=== PATIENT | male | born 1935 | race Caucasian/White ===

== ENCOUNTER 2016-10-12 12:44 | Outpatient (CLI) | payer MEDICARE, OTHER ==
--- NOTE | 2016-10-13 12:44 | Ultrasound Report ---
BLADDER ULTRASOUND: 10/12/2016 CLINICAL HISTORY: Patient has BPH, obstructive, plus reflux uropathy. TECHNIQUE: Real-time scanning was performed with labor representative static images obtained. FINDINGS: Bladder configuration shows no masses. Both ureteral jets are visualized well. Prevoid bladder volume is 89.8 mL. Postvoid bladder volume is 24.9 mL. IMPRESSION: MILD INCREASED POSTVOID RESIDUAL IS NOTED WITHIN THE BLADDER OF 24.9 ML. JOB #: [id number] EXT JOB #:[id number]
== END 2016-10-12 12:45 | disposition home or self-care (01) ==
LOC: DI 12:44
PROVIDERS: ATTEND Internal Medicine
DX: N40.1 Benign prostatic hyperplasia with lower urinary tract symptoms (principal); N13.8 Other obstructive and reflux uropathy
CPT/HCPCS: 76857

== ENCOUNTER 2019-05-16 11:15 | Outpatient (CLI) | payer MEDICARE, OTHER | END 2019-05-16 11:16 | disposition critical access hospital (66) | LOC: EMS 11:15 | PROVIDERS: ATTEND Surgery | DX: R41.0 Disorientation, unspecified (principal); R42 Dizziness and giddiness | CPT/HCPCS: A0425; A0427 ==

== ENCOUNTER 2019-05-16 11:44 | Emergency (ER) | payer MEDICARE, OTHER ==
[2019-05-16 12:30] LABS: BASOPHILS % (AUTO) 0.4 %; EOSINOPHILS # (AUTO) 0.1 10^3/uL (0.0-0.7); EOSINOPHILS % (AUTO) 1.1 %; HGB - HEMOGLOBIN 12.9 g/dL (14.0-18.0); LYMPHOCYTES # (AUTO) 0.8 10^3/uL (1.5-3.5); LYMPHOCYTES % (AUTO) 9.3 %; MEAN CORPUSCULAR HEMOGLOBIN 30.6 pg (27.0-31.0); MEAN CORPUSCULAR HGB CONC 34.7 g/dL (32.0-36.0); MEAN CORPUSCULAR VOLUME 88.4 fL (80.0-94.0); MEAN PLATELET VOLUME 9.6 fL (7.4-11.4); MONOCYTES # (AUTO) 0.9 10^3/uL (0.0-1.0); MONOCYTES % (AUTO) 10.1 %; NEUTROPHILS # (AUTO) 6.6 10^3/uL (1.5-6.6); NEUTROPHILS % (AUTO) 78.6 %; PLT - PLATELET COUNT 259 10^3/uL (130-450); RED BLOOD COUNT 4.21 10^6/uL (4.70-6.10); RED CELL DISTRIBUTION WIDTH 12.1 % (12.0-15.0); WHITE BLOOD COUNT 8.4 x10^3/uL (4.8-10.8)
[2019-05-16 12:49] LABS: ALBUMIN 3.9 g/dL (3.2-5.5); ALBUMIN/GLOBULIN RATIO 1.3 (1.0-2.2); BILIRUBIN,TOTAL 0.9 mg/dL (0.2-1.0); CALCIUM 8.8 mg/dL (8.5-10.3)
[2019-05-16] MEDS ORDERED: SODIUM CHLORIDE 0.9% 1,000 ML IV ONE (12:50)
[2019-05-16 12:54] LABS: BILIRUBIN,URINE NEGATIVE (NEGATIVE); GLUCOSE, URINE (UA) NEGATIVE (NEGATIVE); KETONES,URINE (UA) NEGATIVE (NEGATIVE); LEUKOCYTE ESTERASE, URINE NEGATIVE (NEGATIVE); NITRITE,URINE NEGATIVE (NEGATIVE); OCCULT BLOOD,URINE NEGATIVE (NEGATIVE); PROTEIN,URINE NEGATIVE (NEGATIVE); UROBILINOGEN,URINE 0.2 (NORMAL) E.U./dL (NORMAL)
[2019-05-16 12:56] LABS: CLARITY,URINE CLEAR (CLEAR)
--- NOTE | 2019-05-16 12:59 | ED Physician Documentation ---
History of Present Illness - Stated complaint Stated Complaint: AMS - Chief complaint Chief Complaint: Neuro - History obtained from History obtained from: Patient, EMS - History of Present Illness Timing: Yesterday Pain level max: 0 Pain level now: 0 Improved by: nothing Worsened by: nothing - Additonal information Additional information: states accidentally took 30mg of his 's baclofen last night. He still relates that he felt lightheaded and dizzy after this. He states that he slept very well last night however. When he got up this morning he still felt lightheaded and slightly confused so called 911. No focal neurological deficits. No shortness of breath. No nausea or vomiting. No abdominal pain. No difficulty with ambulation. No chest pain. Review of Systems Ten Systems: 10 systems reviewed and negative Constitutional: denies: Fever, Chills Nose: denies: Rhinorrhea / runny nose, Congestion Cardiac: denies: Chest pain / pressure Respiratory: denies: Cough GI: denies: Abdominal Pain, Nausea, Vomiting, Diarrhea : denies: Dysuria Skin: denies: Rash Musculoskeletal: denies: Neck pain, Back pain Neurologic: reports: Confused (Patient states he felt confused this morning currently is feeling better). denies: Focal weakness, Numbness, Headache, Head injury, LOC PD PAST MEDICAL HISTORY - Past Medical History Past Medical History: Yes Cardiovascular: Hypertension, High cholesterol Neuro: CVA Endocrine/Autoimmune: HyPOthyroidism GI: GERD - Present Medications Home Medications: Ambulatory Orders Medication Instructions Recorded Confirmed Amlodipine Besylate [Norvasc] 10 mg PO DAILY 05/16/19 05/16/19 Atorvastatin Calcium 20 mg PO DAILY 05/16/19 05/16/19 Levothyroxine [Synthroid] 100 mcg PO QDAC 05/16/19 05/16/19 Omeprazole 0 mg PO DAILY 05/16/19 05/16/19 Tamsulosin HCl [Flomax] 0.4 mg PO DAILY 05/16/19 05/16/19 timoloL maleate [Timolol Maleate] 0 mg PO DAILY 05/16/19 05/16/19 - Allergies Allergies/Adverse Reactions: Allergies Allergy/AdvReac Type Severity Reaction Status Date / Time No Known Drug Allergies Allergy Verified 05/16/19 12:04 - Social History Does the pt smoke?: No Smoking Status: Never smoker Does the pt drink ETOH?: No Does the pt have substance abuse?: No - Immunizations Immunizations: TDAP >10years/unknown PD ED PE NORMAL - Vitals Vital signs reviewed: Yes - General General: Alert and oriented X 3, No acute distress, Well developed/nourished, Other (Slightly slow to respond to questions at times.) - HEENT HEENT: Atraumatic, PERRL, EOMI, Ears normal, Moist mucous membranes, Pharynx benign - Neck Neck: Supple, no meningeal sign - Cardiac Cardiac: RRR, Strong equal pulses - Respiratory Respiratory: No respiratory distress, Clear bilaterally - Abdomen Abdomen: Soft, Non tender, Non distended - Derm Derm: Warm and dry, No rash - Extremities Extremities: No edema - Neuro Neuro: Alert and oriented X 3, instant potato processor 2-12 intact, No motor deficit, No sensory deficit, Normal speech Eye Opening: Spontaneous Motor: Obeys Commands Verbal: Oriented GCS Score: 15 - Psych Psych: Normal mood, Normal affect Results - Vitals Vitals: Vital Signs - 24 hr 05/16/19 05/16/19 05/16/19 11:51 13:55 14:00 Temperature 36.9 C Heart Rate 57 L 75 68 Respiratory 17 19 14 Rate Blood Pressure 146/74 H 132/62 H 135/73 H O2 Saturation 99 100 97 Oxygen O2 Source Room air - Labs Labs: Laboratory Tests 05/16/19 05/16/19 05/16/19 12:26 12:26 12:26 WBC 8.4 RBC 4.21 L Hgb 12.9 L Hct 37.2 L MCV 88.4 MCH 30.6 MCHC 34.7 RDW 12.1 Plt Count 259 MPV 9.6 Neut # (Auto) 6.6 Lymph # (Auto) 0.8 L Beadle # (Auto) 0.9 Eos # (Auto) 0.1 Baso # (Auto) 0.0 Absolute Nucleated RBC 0.00 Nucleated RBC % 0.0 Sodium 130 L Potassium 3.8 Chloride 96 L Carbon Dioxide 25 Anion Gap 9.0 BUN 17 Creatinine 1.0 Estimated GFR (MDRD) 71 L Glucose 117 H Calcium 8.8 Total Bilirubin 0.9 AST 21 ALT 16 Alkaline Phosphatase 60 Troponin I High Sens 8.0 Total Protein 7.0 Albumin 3.9 Globulin 3.1 Albumin/Globulin Ratio 1.3 Lipase 24 Urine Color Urine Clarity Urine pH Ur Specific [place] Urine Protein Urine Glucose (UA) Urine Ketones Urine Occult Blood Urine Nitrite Urine Bilirubin Urine Urobilinogen Ur Leukocyte Esterase Ur Microscopic Review Urine Culture Comments 05/16/19 12:45 WBC RBC Hgb Hct MCV MCH MCHC RDW Plt Count MPV Neut # (Auto) Lymph # (Auto) Beadle # (Auto) Eos # (Auto) Baso # (Auto) Absolute Nucleated RBC Nucleated RBC % Sodium Potassium Chloride Carbon Dioxide Anion Gap BUN Creatinine Estimated GFR (MDRD) Glucose Calcium Total Bilirubin AST ALT Alkaline Phosphatase Troponin I High Sens Total Protein Albumin Globulin Albumin/Globulin Ratio Lipase Urine Color YELLOW Urine Clarity CLEAR Urine pH 7.0 Ur Specific [place] 1.010 Urine Protein NEGATIVE Urine Glucose (UA) NEGATIVE Urine Ketones NEGATIVE Urine Occult Blood NEGATIVE Urine Nitrite NEGATIVE Urine Bilirubin NEGATIVE Urine Urobilinogen 0.2 (NORMAL) Ur Leukocyte Esterase NEGATIVE Ur Microscopic Review NOT INDICATED Urine Culture Comments NOT INDICATED - Rads (name of study) Head CT Radiology: Prelim report reviewed, EMP read contemporaneously, See rad report (No acute intracranial abnormality) Chest x-ray Radiology: Prelim report reviewed, EMP read contemporaneously, See rad report (Suspected mild atelectasis versus infiltrate right lung base. Lungs elsewhere appear clear. ) PD MEDICAL DECISION MAKING - ED course Complexity details: reviewed results, re-evaluated patient, considered differential, d/w patient ED course: Patient with likely medication side effect. No evidence of stroke. Normal neurological exam here. Feels better after IV fluids. Appears to be at his baseline mental status. We will have him follow-up with his doctor for further care. Patient counseled regarding signs and symptoms for which I believe and urgent re-evaluation would be necessary. Patient with good understanding of and agreement to plan and is comfortable going home at this time This document was made in part using voice recognition software. While efforts are made to proofread this document, sound alike and grammatical errors may occur. Mild hyponatremia, should improve after IV fluids. Departure - Departure Disposition: 01 Home, Self Care Clinical Impression: Medication side effect, Hyponatremia Condition: Good Instructions: ED Drug React Adverse Other Follow-Up: Kali Thomason MD [Primary Care Provider] - Within 1 week Comments: Return if you worsen. This should continue to improve over the next few hours. Discharge Date/Time: 05/16/19 14:42
--- NOTE | 2019-05-16 13:15 | XRAY Report ---
Reason: chest pain Procedure Date: 05/16/2019 Accession Number: [id number] / [id number] Procedure: XR - Chest 1 View X-Ray CPT Code: 98593 Final Report FULL RESULT: EXAM: CHEST RADIOGRAPHY EXAM DATE: 05/16/2019 01:05 PM. CLINICAL HISTORY: Chest pain. COMPARISON: None. TECHNIQUE: 1 view. FINDINGS: Lungs/Pleura: Mild atelectasis versus consolidation right lower lung. Lungs elsewhere appear clear. Mediastinum: Within exam limitations, the cardiomediastinal contour is normal. Other: None. IMPRESSION: Suspected mild atelectasis versus infiltrate right lung base. Lungs elsewhere appear clear. RADIA
--- NOTE | 2019-05-16 13:41 | CT Report ---
Reason: altered mental status Procedure Date: 05/16/2019 Accession Number: [id number] / [id number] Procedure: CT - HEAD WO CPT Code: Final Report FULL RESULT: EXAM: HEAD WO EXAM DATE: 05/16/2019 01:18 PM CLINICAL HISTORY: Altered mental status. COMPARISON: None. TECHNIQUE: Multiaxial CT images were obtained from the foramen magnum to the vertex. Reformats: Sagittal and coronal. IV contrast: None. In accordance with CT protocol optimization, one or more of the following dose reduction techniques were utilized for this exam: automated exposure control, adjustment of mA and/or KV based on patient size, or use of iterative reconstructive technique. FINDINGS: Parenchyma: No acute intraparenchymal hemorrhage. No evidence of mass, midline shift. Finn-white differentiation is distinct. Extraaxial Spaces: Basal cisterns are preserved. No subdural or epidural collections identified. Ventricles: Normal in size and position. Sinuses and Orbits: Imaged paranasal sinuses, orbits, and mastoids show no significant abnormality. Bones: No evidence of fracture or calvarial defect. Other: None. IMPRESSION: No acute intracranial abnormality. RADIA
[2019-05-16 14:07] VITALS: BP 135/73
== END 2019-05-16 14:42 | disposition home or self-care (01) ==
LOC: EDUNIT# → ED 11:44
DX: R42 Dizziness and giddiness (principal); R41.0 Disorientation, unspecified; T42.8X1A Poisoning by antiparkinsonism drugs and other central muscle-tone depressants, accidental (unintentional), initial encounter; E87.1 Hypo-osmolality and hyponatremia; I10 Essential (primary) hypertension
CPT/HCPCS: 36415; 70450; 71045; 80053; 81001; 81003; 83690; 84484; 85025; 87086; 93005; 96360; 96361; 99284

== ENCOUNTER 2020-04-08 04:07 | Outpatient (CLI) | payer MEDICARE, OTHER ==
--- OUTSIDE RECORDS SUMMARY | 2020-04-08 10:14 | EXTERNAL MEDICAL SUMMARY RPT | Continuity of Care Document ---
:1935 Demographics Phone Unavailable Preferred Language Unknown Marital Status Unknown [employer] Affiliation Unknown Race Unknown Ethnic Group Unknown Author Organization [facility] Address [address] [phone] Phone Care Team Providers Name Role Phone Thomason Unavailable Unavailable Cardenas Unavailable Unavailable Problems date description facility 2013-01-24 13:32 HYPERLIPIDEMIA NEC/NOS [facility] 2013-01-24 13:32 OTH MED,LT,CURRENT USE [facility] 2013-04-09 13:07 HYPERLIPIDEMIA NEC/NOS [facility] 2013-04-09 13:07 OTH MED,LT,CURRENT USE [facility] 2016-10-12 12:44 OTHER OBSTRUCTIVE AND REFLUX [facility] UROPATHY 2016-10-12 12:44 BENIGN PROSTATIC HYPERPLASIA WITH [facility] LOWER URINARY TRACT SYMP 2019-05-16 11:44 HYPO-OSMOLALITY AND HYPONATREMIA [facility] 2019-05-16 11:44 ESSENTIAL (PRIMARY) HYPERTENSION [facility] 2019-05-16 11:44 [facility], [facility] 2019-05-16 11:44 DIZZINESS AND GIDDINESS [facility] 2019-05-16 11:44 POISN BY ANTIPARKNS DRUG/CENTR [facility] DEPR, ACC, INIT Allergies date description facility No Known Drug Allergies [facility] No Known Drug Allergies [facility] No Known Drug Allergies [facility] Social History date description facility [id number]
== END 2020-04-08 04:08 ==
LOC: EMS 04:07
PROVIDERS: ATTEND Surgery
DX: Z53.8 Procedure and treatment not carried out for other reasons (principal)

== ENCOUNTER 2020-06-19 12:33 | Outpatient (CLI) | payer MEDICARE, OTHER ==
--- NOTE | 2020-06-19 15:59 | XRAY Report ---
PROCEDURE: Chest 2 View X-Ray INDICATIONS: DYSPNEA TECHNIQUE: 2 view(s) of the chest. COMPARISON: None. FINDINGS: Surgical changes and devices: None. Lungs and pleura: No pleural effusions or pneumothorax. Lungs are clear. Mediastinum: Mediastinal contours are normal. Heart size is normal. Bones and chest wall: No suspicious bony abnormalities. Soft tissues appear unremarkable. IMPRESSION: Relatively large lung volumes, flattening of the diaphragms to a mild degree on the late ral view. Please correlate for presence or absence of prior smoking history and COPD. No pneumonia fo und. Reviewed by: Ishan Carmona MD on 06/19/2020 3:57 PM PDT Approved by: Ishan Carmona MD on 06/19/2020 3:57 PM PDT Station ID: [id number]
== END 2020-06-19 12:34 | disposition home or self-care (01) ==
LOC: DI 12:33
PROVIDERS: ATTEND Nurse Practitioner Family
DX: R06.00 Dyspnea, unspecified (principal)
CPT/HCPCS: 94060

== ENCOUNTER 2020-06-19 12:35 | Outpatient (CLI) | payer MEDICARE, OTHER ==
[2020-06-19] MEDS ORDERED: ALBUTEROL 1 PUFF INH STA (14:12)
== END 2020-06-19 12:36 | disposition home or self-care (01) ==
LOC: RT 12:35
PROVIDERS: ATTEND Nurse Practitioner Family
DX: R06.00 Dyspnea, unspecified (principal)
CPT/HCPCS: 94060

== ENCOUNTER 2023-10-09 12:16 | Outpatient (CLI) | payer MEDICARE, OTHER ==
--- NOTE | 2023-10-09 17:13 | XRAY Report ---
PROCEDURE: Chest 2V INDICATIONS: DYSPNEA AT REST TECHNIQUE: 2 views of the chest were acquired. COMPARISON: 06/19/2020 FINDINGS: Surgical changes and devices: None. Lungs and pleura: Hyperinflated, hyperlucent lungs without focal consolidation, effusion, or pneumot horax. Mediastinum: Mediastinal contours appear normal. Heart size is normal. Bones and chest wall: No suspicious bony lesions. Overlying soft tissues appear unremarkable. IMPRESSION: No acute cardiopulmonary process. Reviewed by: Yasemin Ramos MD on 10/09/2023 5:11 PM PDT Approved by: Yasemin Ramos MD on 10/09/2023 5:11 PM PDT Station ID: [id number]
== END 2023-10-09 12:17 | disposition home or self-care (01) ==
LOC: DI.S 12:16
DX: R06.00 Dyspnea, unspecified (principal)